=== PATIENT | female | born 1965 | race Caucasian/White ===

== ENCOUNTER 2021-11-07 19:08 | Inpatient (IN) | payer OTHER ==
[~2021-11-07] VITALS: Ht 155 cm; Wt 76.6 kg
--- OUTSIDE RECORDS SUMMARY | 2021-11-07 19:14 | XMS REPORT | Clinical Summary ---
Author Author [facility] Organization [facility] Address Unknown Phone Unavailable Care Team Providers Care Beater And Pulper Feeder Name Role Phone Apolinar Diaz MD PCP Apolinar Bryan MD Unavailable Source Comments Some departments are not documenting in the electronic medical record. If you d o not see the information that you expected, contact Release of Information in [facility] Information Management department at [phone] for further assistan ce in locating additional records.[facility] Allergies Comments Active Allergy Reactions Severity Noted Date Allergy recorded in SMS: LEXAPRO~Reactions: UNSURE Escitalopram Medium 04/26/2006 Allergy recorded in SMS: PNC~Reactions: UNSURE Penicillins Medium 12/07/2004 Medications End Date Status Medication Sig Dispensed Refills Start Date Active EFFEXOR 75 mg tablet Take 75 mg by 0 mouth Daily. Active Problems Not on file Surgical History Surgery Date Site/Laterality Comments HX SECTION HX SINUS SURGERY Medical History Medical History Date Comments Depression Aneurysm (HCC) Unspecified disorders of nervous system Unspecified mental or behavioral problem Social History Date Tobacco Use Types Packs/Day Years Used Current Every Day Smoker 0.5 Comments Alcohol Use Standard Drinks/Week social Yes 0 (1 standard drink = 0.6 o z pure alcohol) Alcohol Habits Answer Date Recorded How often do you have a drink containing alcohol? No t asked How many drinks containing alcohol do you have on No t asked a typical day when you are drinking? How often do you have six or more drinks on one Not asked occasion? Comment: social 04/25/2008 Sex Assigned at Date Recorded Not on file Last Filed Vital Signs Reading Time Taken Comments Vital Sign 101/74 04/25/2008 3:30 PM CDT Blood Pressure 75 04/25/2008 3:30 PM CDT Pulse 36.7 C (98.1 F) 04/25/2008 10:31 AM CDT Temperature - - Respiratory Rate 100% 04/25/2008 3:30 PM CDT Oxygen Saturation - - Inhaled Oxygen Concentration 75.8 kg (167 lb) 04/25/2008 10:31 AM CDT Weight 154.9 cm (5' 1") 04/25/2008 10:31 AM CDT Height 31.55 04/25/2008 10:31 AM CDT Body Mass Index Plan of Treatment Health Maintenance Due Date Last Done Comments HIV SCREENING 1981 DTAP/TDAP VACCINES (1 - 1984 Tdap) HEPATITIS C SCREENING 1984 PHYSICAL (COMPREHENSIVE) 1984 EXAM CERVICAL CANCER SCREENING 1987 BREAST CANCER SCREENING 2006 COLORECTAL CANCER 2016 SCREENING SHINGLES RECOMBINANT 2016 VACCINE (1 of 2) INFLUENZA VACCINE 06/03/2021 Results Not on filefrom Last 3 Months Care Teams Start Date End Date Beater And Pulper Feeder Relationship Specialty 07/08/07 Apolinar Diaz MD PCP - General [facility] [place] [address] 09/03/10 Apolinar Bryan MD [address] [place] [address]
[2021-11-07 20:18] LABS: EOSINOPHILS % (AUTO) 1 % (0-10); HEMATOCRIT 37 % (35-52); HEMOGLOBIN 13.2 g/dL (11.5-16.0); LYMPHOCYTES % (AUTO) 32 % (12-44); MEAN CORPUSCULAR HEMOGLOBIN 30 pg (25-34); MEAN CORPUSCULAR HGB CONC 36 g/dL (32-36); MEAN CORPUSCULAR VOLUME 83 fL (80-99); MEAN PLATELET VOLUME 8.9 fL (9.0-12.2); MONOCYTES % (AUTO) 10 % (0-12); NEUTROPHILS % (AUTO) 56 % (42-75); PLATELET COUNT 478 10^3/uL (130-400); WHITE BLOOD COUNT 8.2 10^3/uL (4.3-11.0)
[2021-11-07 20:19] LABS: BASOPHILS % (AUTO) 0 % (0-10); EOSINOPHILS # (AUTO) 0.1 10^3/uL (0.0-0.3); LYMPHOCYTES # (AUTO) 2.7 X 10^3 (1.0-4.0); MONOCYTES # (AUTO) 0.9 X 10^3 (0.0-1.0); NEUTROPHILS # (AUTO) 4.6 X 10^3 (1.8-7.8)
[2021-11-07 20:35] LABS: BILIRUBIN,URINE NEGATIVE (NEGATIVE); CLARITY,URINE CLEAR; COLOR,URINE YELLOW; GLUCOSE, URINE (UA) NEGATIVE (NEGATIVE); KETONES,URINE NEGATIVE (NEGATIVE); LEUKOCYTE ESTERASE ,URINE NEGATIVE (NEGATIVE); NITRITE,URINE NEGATIVE (NEGATIVE); PH,URINE 6.5 (5-9); PROTEIN,URINE NEGATIVE (NEGATIVE)
[2021-11-07 20:38] LABS: ALBUMIN 4.4 GM/DL (3.2-4.5); BILIRUBIN,TOTAL 0.3 MG/DL (0.1-1.0); CALCIUM 9.5 MG/DL (8.5-10.1); CREATININE SERUM 0.89 MG/DL (0.60-1.30); POTASSIUM 3.9 MMOL/L (3.6-5.0)
[2021-11-07 20:43] LABS: BACTERIA,URINE NEGATIVE /HPF; WBC,URINE 0-2 /HPF
--- NOTE | 2021-11-07 21:52 | ED General ---
General Chief Complaint: General Problems/Pain Stated Complaint: WEAKNESS,LIGHTHEADED Nursing Triage Note: pt arrives per POV w/ c/o general weakness and fatigue. Dx w/ Covid in October, and now back to work fulltime. Source of Information: Patient Exam Limitations: No Limitations History of Present Illness Date Seen by Provider: Nov 07, 2021 Time Seen by Provider: 19:20 Initial Comments Patient is a 56-year-old female who is 15 days post Covid who presents with generalized weakness, fatigue and feeling of bilateral leg heaviness for the past 3 days. Patient denies chest pain palpitations, shortness of breath. No fever chills or sweats. No nausea vomiting or diarrhea. Denies increased leg swelling or pain. No other acute symptoms or complaints. Timing/Duration: 3-4 Days Severity: Mild Modifying Factors: improves with Other Associated Systoms: Other Allergies and Home Medications Allergies Coded Allergies: Penicillins (Verified Allergy, Unknown, Rash, 11/07/21) "when I was little, think a rash" Patient Home Medication List Home Medication List Reviewed: Yes Hydrochlorothiazide (Hydrochlorothiazide) 25 Mg Tablet, 25 MG PO DAILY, (Reported) Entered as Reported by: MARCIN VILLASEÑOR on 11/08/2111 Last Action: Reviewed Olmesartan Medoxomil (Olmesartan Medoxomil) 40 Mg Tablet, 40 MG PO DAILY, (Reported) Entered as Reported by: MARCIN VILLASEÑOR on 11/08/2111 Last Action: Reviewed Review of Systems Review of Systems Constitutional: see HPI EENTM: see HPI Respiratory: see HPI Cardiovascular: see HPI Gastrointestinal: see HPI Genitourinary: see HPI Musculoskeletal: see HPI Skin: see HPI Psychiatric/Neurological: See HPI Hematologic/Lymphatic: See HPI Immunological/Allergic: see HPI All Other Systems Reviewed Negative Unless Noted: Yes Past Wzrhahb-Demzgi-Ckvspo Hx Patient Social History Tobacco Use?: Yes Smoking Status: Current Everyday Smoker Alcohol Use?: Yes Alcohol Frequency: Rarely Immunizations Up To Date Influenza Vaccine Up-to-Date: Yes; Up-to-Date First/Initial COVID19 Vaccinat: Unvaccinated Physical Exam Vital Signs Vital Signs - First Documented 11/07/21 20:03 Temp 36.4 Pulse 78 Resp 20 B/P (MAP) 140/76 (97) Pulse Ox 97 Capillary Refill : Less Than 3 Seconds Height, Weight, BMI Height: '" Weight: lbs. oz. kg; 31.00 BMI Method: General Appearance: Anxious Eyes: Bilateral Eye Normal Inspection, Bilateral Eye PERRL, Bilateral Eye EOMI HEENT: PERRL/EOMI, Normal ENT Inspection, Pharynx Normal Neck: Full Range of Motion, Normal Inspection, Non Tender, Supple Respiratory: Lungs Clear Cardiovascular: Regular Rate, Rhythm, No Edema Gastrointestinal: Non Tender, Soft Extremity: Normal Capillary Refill, Normal Inspection Neurologic/Psychiatric: Alert, Oriented x3 Skin: Normal Color, Warm/Dry Lymphatic: No Adenopathy Focused Exam Sepsis Stage: Ruled Out Progress/Results/Core Measures Suspected Sepsis SIRS Temperature: Pulse: 78 Respiratory Rate: 20 Laboratory Tests 11/07/21 19:50: White Blood Count 8.2 Blood Pressure 140 /76 Mean: 97 Laboratory Tests 11/07/21 19:50: Creatinine 0.89, Platelet Count 478H, Total Bilirubin 0.3 Results/Orders Lab Results Laboratory Tests Test 11/07/21 19:50 11/07/21 20:15 11/07/21 20:20 Range/Units White Blood Count 8.2 4.3-11.0 10^3/uL Red Blood Count 4.38 3.80-5.11 10^6/uL Hemoglobin 13.2 11.5-16.0 g/dL Hematocrit 37 35-52 % Mean Corpuscular Volume 83 80-99 fL Mean Corpuscular Hemoglobin 30 25-34 pg Mean Corpuscular Hemoglobin Concent 36 32-36 g/dL Red Cell Distribution Width 11.8 10.0-14.5 % Platelet Count 478 H 130-400 10^3/uL Mean Platelet Volume 8.9 L 9.0-12.2 fL Neutrophils (%) (Auto) 56 42-75 % Lymphocytes (%) (Auto) 32 12-44 % Monocytes (%) (Auto) 10 0-12 % Eosinophils (%) (Auto) 1 0-10 % Basophils (%) (Auto) 0 0-10 % Neutrophils # (Auto) 4.6 1.8-7.8 X 10^3 Lymphocytes # (Auto) 2.7 1.0-4.0 X 10^3 Monocytes # (Auto) 0.9 0.0-1.0 X 10^3 Eosinophils # (Auto) 0.1 0.0-0.3 10^3/uL Basophils # (Auto) 0.0 0.0-0.1 10^3/uL Sodium Level 121 *L 135-145 MMOL/L Potassium Level 3.9 3.6-5.0 MMOL/L Chloride Level 86 L 98-107 MMOL/L Carbon Dioxide Level 24 21-32 MMOL/L Anion Gap 11 5-14 MMOL/L Blood Urea Nitrogen 11 7-18 MG/DL Creatinine 0.89 0.60-1.30 MG/DL Estimat Glomerular Filtration Rate 66 BUN/Creatinine Ratio 12 Glucose Level 132 H 70-105 MG/DL Calcium Level 9.5 8.5-10.1 MG/DL Corrected Calcium 9.2 8.5-10.1 MG/DL Magnesium Level 1.8 1.6-2.4 MG/DL Total Bilirubin 0.3 0.1-1.0 MG/DL Aspartate Amino Transf (AST/SGOT) 27 5-34 U/L Alanine Aminotransferase (ALT/SGPT) 28 0-55 U/L Alkaline Phosphatase 115 40-136 U/L Total Protein 7.0 6.4-8.2 GM/DL Albumin 4.4 3.2-4.5 GM/DL Influenza Type A Antigen NEGATIVE NEGATIVE Influenza Type B Antigen NEGATIVE NEGATIVE Urine Color YELLOW Urine Clarity CLEAR Urine pH 6.5 5-9 Urine Specific [place] 1.010 L 1.016-1.022 Urine Protein NEGATIVE NEGATIVE Urine Glucose (UA) NEGATIVE NEGATIVE Urine Ketones NEGATIVE NEGATIVE Urine Nitrite NEGATIVE NEGATIVE Urine Bilirubin NEGATIVE NEGATIVE Urine Urobilinogen 0.2 < = 1.0 MG/DL Urine Leukocyte Esterase NEGATIVE NEGATIVE Urine RBC (Auto) NEGATIVE NEGATIVE Urine RBC NONE /HPF Urine WBC 0-2 /HPF Urine Squamous Epithelial Cells 2-5 /HPF Urine Crystals NONE /LPF Urine Bacteria NEGATIVE /HPF Urine Casts NONE /LPF Urine Mucus SMALL H /LPF Urine Culture Indicated NO My Orders Orders - DORIS PALAFOX DO Cbc With Automated Diff (11/07/21 20:02) Comprehensive Metabolic Panel (11/07/21 20:02) Urinalysis (11/07/21 20:02) Influenza A & B Antigens (11/07/21 20:02) Magnesium (11/07/21 20:11) Vital Signs/I&O 11/07/21 11/07/21 20:03 23:39 Temp 36.4 Pulse 78 72 Resp 20 20 B/P (MAP) 140/76 (97) 99/50 Pulse Ox 97 97 Capillary Refill : Less Than 3 Seconds Blood Pressure Mean: 97 Departure Communication (PCP) Patient with symptomatic hyponatremia likely secondary to antihypertensive and diuretics. IV fluids given. Will admit to the hospitalist service Impression Primary Impression: Generalized weakness Additional Impression: Hyponatremia Disposition: ADMITTED INPATIENT Condition: Stable Admissions Decision to Admit Reason: Admit from ER (General) Decision to Admit/Date: Nov 08, 2021 Time/Decision to Admit Time: 23:00 Departure-Patient Inst. Referrals: KEVIN HUMPHREYS MD (PCP/Family) Primary Care Physician DORIS PALAFOX DO Nov 07, 2021 21:52
[2021-11-08] MEDS ORDERED: HYDR25TA4 PO (00:12)
[2021-11-08] MEDS ORDERED: OLME40TA18 PO (00:12)
[2021-11-08 00:30] VITALS: BP 116/66
[2021-11-08] MEDS ORDERED: ACETAMINOPHEN 325 MG TABLET PO PRN (00:45)
[2021-11-08] MEDS ORDERED: ONDANSETRON 4 MG/2 ML (SDV) Z0FRAN IV PRN (00:45)
[2021-11-08] MEDS: NS IV 1000 ML 1,000 ML IV SCH ×2 (01:01→17:32)
[2021-11-08 04:25] VITALS: BP 100/55
[2021-11-08] MEDS ORDERED: HYDROcodone/APAP 5 MG/325 MG (LORTAB) TAB PO PRN (06:15)
[2021-11-08] MEDS ORDERED: DOCUSATE SODIUM 100 MG (COLACE) CAP PO PRN (06:15)
[2021-11-08] MEDS ORDERED: diphenhydrAMINE 25 MG TAB (BENADRYL) PO PRN (06:15)
[2021-11-08] MEDS ORDERED: LOPERAMIDE 2 MG (IMODIUM) TABLET PO PRN (06:15)
[2021-11-08] MEDS ORDERED: CALCIUM CARBONATE 500 MG (TUMS) TAB.CHEW PO PRN (06:15)
[2021-11-08] MEDS ORDERED: MELATONIN 3 MG TABLET PO PRN (06:15)
[2021-11-08] MEDS ORDERED: ALPRAZolam 0.25 MG (XANAX) TAB PO PRN (06:15)
[2021-11-08 06:59] LABS: BASOPHILS % (AUTO) 0 % (0-10); EOSINOPHILS # (AUTO) 0.1 10^3/uL (0.0-0.3); EOSINOPHILS % (AUTO) 1 % (0-10); HEMATOCRIT 36 % (35-52); HEMOGLOBIN 12.8 g/dL (11.5-16.0); LYMPHOCYTES # (AUTO) 1.9 10^3/uL (1.0-4.0); LYMPHOCYTES % (AUTO) 25 % (12-44); MEAN CORPUSCULAR HEMOGLOBIN 30 pg (25-34); MEAN CORPUSCULAR HGB CONC 36 g/dL (32-36); MEAN CORPUSCULAR VOLUME 84 fL (80-99); MEAN PLATELET VOLUME 9.2 fL (9.0-12.2); MONOCYTES # (AUTO) 0.7 10^3/uL (0.0-1.0); MONOCYTES % (AUTO) 10 % (0-12); NEUTROPHILS # (AUTO) 4.8 10^3/uL (1.8-7.8); NEUTROPHILS % (AUTO) 64 % (42-75); PLATELET COUNT 388 10^3/uL (130-400); WHITE BLOOD COUNT 7.5 10^3/uL (4.3-11.0)
[2021-11-08 07:21] LABS: POTASSIUM 3.9 MMOL/L (3.6-5.0)
[2021-11-08 07:22] LABS: CALCIUM 9.2 MG/DL (8.5-10.1)
[2021-11-08 07:26] LABS: CREATININE SERUM 0.79 MG/DL (0.60-1.30)
[2021-11-08 07:42] VITALS: BP 117/57
[2021-11-08] MEDS: SENNA W/DOCUSATE (SENOKOT S) TABLET PO SCH ×2 (08:52→22:45)
[2021-11-08] MEDS: ENOXAPARIN 40 MG/0.4 ML (LOVENOX) SYR SC SCH (08:52)
[2021-11-08] MEDS: polyethylene glycoL POWDER 17 GM (MIRALAX) PACK PO SCH ×2 (08:52→22:44)
[2021-11-08 11:29] VITALS: BP 114/54
[2021-11-08] MEDS ORDERED: ASPI-789 PO (11:30)
[2021-11-08] MEDS ORDERED: ASCO-262 PO (11:30)
[2021-11-08] MEDS ORDERED: ZINC50TA58 PO (11:30)
[2021-11-08] MEDS ORDERED: OMEP-254 PO (11:30)
--- NOTE | 2021-11-08 13:55 | History & Physical ---
ADE WILKINSON 11/08/21 0295: History of Present Illness History of Present Illness Reason for visit/HPI This is a 56 y/o female with a hx of HTN who presents for symptomatic hyponatremia. Pt reports that she was diagnosed with COVID and a UTI on 10/22/21 and, after her recovery, recently began to feel somewhat weak. She decided to seek care after feeling that her legs were particularly heavy and unsteady, and she felt shaky and unwell. She has never felt this way before. In the ED, she was found to have a serum sodium of 121, leading to her admission. Date of Admission Nov 08, 2021 at 00:03 Date Seen by a Provider: Nov 08, 2021 Time Seen by a Provider: 08:45 I consulted on this patient on 11/08/21 13:46 Attending Physician Molly Redd DO Admitting Physician Apolinar Diaz MD Consult Allergies and Home Medications Allergies Coded Allergies: Penicillins (Verified Allergy, Unknown, Rash, 11/07/21) "when I was little, think a rash" Patient Home Medication List Home Medication List Reviewed: Yes Ascorbate Calcium (Vitamin C) 500 Mg Tablet, 500 MG PO DAILY, (Reported) Entered as Reported by: RUBIA RO on 11/08/211129 Last Action: Converted Aspirin/Acetaminophen/Caffeine (Excedrin Migraine Caplet) 1 Each Tablet, 2 EACH PO Q6-8HR PRN for Headache, (Reported) Entered as Reported by: RUBIA RO on 11/08/211129 Last Action: Converted Hydrochlorothiazide (Hydrochlorothiazide) 25 Mg Tablet, 25 MG PO HS, (Reported) Entered as Reported by: MARCIN VILLASEÑOR on 11/08/2111 Last Action: Held Olmesartan Medoxomil (Olmesartan Medoxomil) 40 Mg Tablet, 40 MG PO HS, (Reported) Entered as Reported by: MARCIN VILLASEÑOR on 11/08/2111 Last Action: Converted Omeprazole Magnesium (Omeprazole Magnesium) 20 Mg Capsule.dr, 20 MG PO DAILY PRN for HEARTBURN, (Reported) Entered as Reported by: RUBIA RO on 11/08/211129 Last Action: Converted Zinc (Zinc) 50 Mg Tablet, 50 MG PO DAILY, (Reported) Entered as Reported by: RUBIA RO on 1/6/22 1130 Last Action: Converted Past [id number]-Dgnbzi-Uttgmx Hx Patient Social History Marrital Status: Employed/Student: employed Tobacco Use?: Yes Tobacco type used: Cigarettes Smoking Status: Current Everyday Smoker (1/2 PPD for 20 years) Smokeless Tobacco Frequency: Never a User Use of E-Cig and/or Vaping dev: No Substance use?: No Alcohol Use?: Yes Alcohol Frequency: Rarely Pt feels they are or have been: No Immunizations Up To Date First/Initial COVID19 Vaccinat: Unvaccinated Tetanus Booster (TDap): Unknown Current Status status: No Advance Directives: No Communicates: Verbally Primary Language: Dominican Preferred Spoken Language: Dominican Is interpretation needed?: No Sensory deficits: Vision impairment Past Medical History Surgeries: Section, Hysterectomy, Oophorectomy, Tonsillectomy, Vascular Surgery (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 years ago) Hypertension VESSEL MASTER History: Hysterectomy Family Medical History Cancer (Brother: Brain Mother: Lung ), Hypertension (Father) Review of Systems Constitutional: No chills, No fever; weakness EENTM: No hearing loss, No double vision, No vision loss, No throat pain Respiratory: No cough, No short of breath, No wheezing Cardiovascular: No chest pain, No edema Gastrointestinal: No abdominal pain, No constipation, No diarrhea, No loss of appetite, No nausea, No vomiting Genitourinary: No dysuria, No frequency : No Musculoskeletal: No joint swelling, No muscle pain, No muscle stiffness Skin: No change in color, No change in hair/nails, No pruritus, No rash Psychiatric/Neurological: Denies Headache, Denies Numbness; Weakness Physical Exam Vital Signs Vital Signs - First Documented 11/07/21 11/08/21 20:03 00:30 Temp 36.4 Pulse 78 Resp 20 B/P (MAP) 140/76 (97) Pulse Ox 97 O2 Delivery Room Air Capillary Refill : Less Than 3 Seconds Height, Weight, BMI Height: '" Weight: lbs. oz. kg; 31.88 BMI Method: General Appearance: No Apparent Distress, WD/WN Eyes: Bilateral Eye Normal Inspection, Bilateral Eye PERRL, Bilateral Eye EOMI HEENT: PERRL/EOMI, TMs Normal, Moist Mucous Membranes Neck: Non Tender; No JVD Respiratory: Chest Non Tender, Lungs Clear, No Accessory Muscle Use, No Respiratory Distress Cardiovascular: Regular Rate, Rhythm, No Edema, No Gallop, No JVD, No Murmur Gastrointestinal: Non Tender, Soft Rectal: Deferred Extremity: Normal Capillary Refill, Non Tender, No Calf Tenderness Neurologic/Psychiatric: Alert, Oriented x3, Normal Mood/Affect Skin: Normal Color, Warm/Dry Lymphatic: No Adenopathy Assessment/Plan Assessment and Plan This is a 56 y/o female with a hx of HTN who presented for symptomatic hy ponatremia that appears to be resolving. Problems: (1) Hyponatremia Onset Date: ~ 11/07/2021 Status: Acute Assessment & Plan: - likely 12/05 thazide diuretic use - good goal rate of correction of 6-7/day - Na 127 today - replete K PRN - Fluid restrictions to 1.5 liter per 24h - if not correcting, then will start intermittent IVF D5W Admission Diagnosis Admission Status: Inpatient Order (span 2 midnights) Reason for Inpatient Admission: Hyponatremia MOLLY REDD DO 11/09/21 0553: History of Present Illness History of Present Illness Reason for visit/HPI Chief Complaint: Hyponatremia with weakness HPI: This is a 56yoWF clinic patient of Dr. Diaz who just recently recovered from COVID on 10/22/21. Patient presented with weakness and shakiness found to have sodium level of 121. We are reviewing her home medications, but Thiazide diuretic is on her home medication list. She has been placed on fluid restriction and gentle IV fluids and her Sodium level is 127 today. She feels much better. Allergies and Home Medications Allergies Coded Allergies: Penicillins (Verified Allergy, Unknown, Rash, 11/07/21) "when I was little, think a rash" Patient Home Medication List Home Medication List Reviewed: Yes Ascorbate Calcium (Vitamin C) 500 Mg Tablet, 500 MG PO DAILY, (Reported) Entered as Reported by: RUBIA RO on 11/08/21 1130 Last Action: Converted Aspirin/Acetaminophen/Caffeine (Excedrin Migraine Caplet) 1 Each Tablet, 2 EACH PO Q6-8HR PRN for Headache, (Reported) Entered as Reported by: RUBIA RO on 11/08/21 1130 Last Action: Converted Hydrochlorothiazide (Hydrochlorothiazide) 25 Mg Tablet, 25 MG PO HS, (Reported) Entered as Reported by: MARCIN VILLASEÑOR on 11/08/2111 Last Action: Held Olmesartan Medoxomil (Olmesartan Medoxomil) 40 Mg Tablet, 40 MG PO HS, (Reported) Entered as Reported by: MARCIN VILLASEÑOR on 11/08/2111 Last Action: Converted Omeprazole Magnesium (Omeprazole Magnesium) 20 Mg Capsule.dr, 20 MG PO DAILY PRN for HEARTBURN, (Reported) Entered as Reported by: RUBIA RO on 11/08/211129 Last Action: Converted Zinc (Zinc) 50 Mg Tablet, 50 MG PO DAILY, (Reported) Entered as Reported by: RUBIA RO on 11/08/211129 Last Action: Converted Past Jfikdnw-Bqvnwe-[id number] Hx Patient Social History Marrital Status: Employed/Student: employed Tobacco Use?: Yes Smoking Status: Current Everyday Smoker (1/2 PPD for 20 years) Past Medical History Surgeries: Section, Hysterectomy, Oophorectomy, Tonsillectomy, Vascular Surgery (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 years ago) Hypertension VESSEL MASTER History: Hysterectomy Review of Systems Constitutional: see HPI, weakness EENTM: no symptoms reported Respiratory: no symptoms reported Cardiovascular: no symptoms reported Gastrointestinal: no symptoms reported Genitourinary: no symptoms reported Skin: no symptoms reported Psychiatric/Neurological: No Symptoms Reported All Other Systems Reviewed Negative Unless Noted: Yes Physical Exam General Appearance: No Apparent Distress, WD/WN, Chronically ill Eyes: Bilateral Eye Normal Inspection, Bilateral Eye PERRL, Bilateral Eye EOMI HEENT: PERRL/EOMI, Normal ENT Inspection, Pharynx Normal Neck: Full Range of Motion, Normal Inspection, Non Tender, Supple, Carotid Bruit Respiratory: Chest Non Tender, Lungs Clear, Normal Breath Sounds, No Accessory Muscle Use, No Respiratory Distress Cardiovascular: Regular Rate, Rhythm, No Edema, No Gallop, No JVD, No Murmur, Normal Peripheral Pulses Gastrointestinal: Normal Bowel Sounds, No Organomegaly, No Pulsatile Mass, Non Tender, Soft Back: Normal Inspection, No CVA Tenderness, No Vertebral Tenderness Extremity: Normal Capillary Refill, Normal Inspection, Normal Range of Motion, Non Tender, No Calf Tenderness, No Pedal Edema Neurologic/Psychiatric: Alert, Oriented x3, No Motor/Sensory Deficits, Normal Mood/Affect Skin: Normal Color, Warm/Dry Lymphatic: No Adenopathy Assessment/Plan Assessment and Plan Assessment: Severe hyponatremia Post COVID syndrome Smoker HTN Plan: IVF gentle Fluid restriction DC HCTZ Smoking cessation Admission Diagnosis Admission Status: Inpatient Order (span 2 midnights) Reason for Inpatient Admission: severe hyponatremia Supervisory-Addendum Brief Verification & Attestation Participated in pt care: history, MDM, physical Personally performed: exam, history, MDM, supervision of care Care discussed with: Medical Student Procedures: n/a Results interpretation: Verified all documentation Verification and Attestation of Medical Student E/M Service A medical student performed and documented this service in my presence. I reviewed and verified all information documented by the medical student and made modifications to such information, when appropriate. I personally performed the physical exam and medical decision making. Molly Redd, Nov 09, 2021,05:51 ADE WILKINSON Nov 08, 2021 13:55 MOLLY REDD DO Nov 09, 2021 05:53
[2021-11-08 15:35] VITALS: BP 108/53
[2021-11-08 20:40] VITALS: BP 117/56
[2021-11-08] MEDS ORDERED: NON-FORMULARY MEDICATION 1 EA EA (Aspirin/Acetaminophen/Caffeine (Excedrin Migraine Caplet PO PRN (21:00)
[2021-11-08] MEDS ORDERED: VALSARTAN 160 MG (DIOVAN) TABLET PO SCH (22:00)
[2021-11-08] MEDS ORDERED: PANTOPRAZOLE 20 MG TABLET (PROTONIX) PO PRN (22:15)
[2021-11-09 00:10] VITALS: BP 89/51
[2021-11-09 04:05] VITALS: BP 111/56
[2021-11-09] MEDS: NS IV 1000 ML 1,000 ML IV SCH (04:13)
[2021-11-09 06:15] LABS: BASOPHILS % (AUTO) 1 % (0-10); EOSINOPHILS # (AUTO) 0.1 10^3/uL (0.0-0.3); EOSINOPHILS % (AUTO) 1 % (0-10); HEMATOCRIT 35 % (35-52); HEMOGLOBIN 12.2 g/dL (11.5-16.0); LYMPHOCYTES # (AUTO) 2.2 10^3/uL (1.0-4.0); LYMPHOCYTES % (AUTO) 41 % (12-44); MEAN CORPUSCULAR HEMOGLOBIN 30 pg (25-34); MEAN CORPUSCULAR HGB CONC 35 g/dL (32-36); MEAN CORPUSCULAR VOLUME 87 fL (80-99); MEAN PLATELET VOLUME 9.2 fL (9.0-12.2); MONOCYTES # (AUTO) 0.7 10^3/uL (0.0-1.0); MONOCYTES % (AUTO) 14 % (0-12); NEUTROPHILS # (AUTO) 2.4 10^3/uL (1.8-7.8); NEUTROPHILS % (AUTO) 44 % (42-75); PLATELET COUNT 354 10^3/uL (130-400); WHITE BLOOD COUNT 5.5 10^3/uL (4.3-11.0)
[2021-11-09 06:29] LABS: ALBUMIN 3.4 GM/DL (3.2-4.5); POTASSIUM 4.3 MMOL/L (3.6-5.0)
[2021-11-09 06:30] LABS: CALCIUM 8.7 MG/DL (8.5-10.1)
[2021-11-09 06:32] LABS: TOTAL PROTEIN 5.6 GM/DL (6.4-8.2)
[2021-11-09 06:33] LABS: BILIRUBIN,TOTAL 0.4 MG/DL (0.1-1.0)
[2021-11-09 06:35] LABS: CREATININE SERUM 0.77 MG/DL (0.60-1.30)
[2021-11-09 07:41] VITALS: BP 109/55
[2021-11-09] MEDS ORDERED: ZINC SULFATE 220 MG CAPSULE PO SCH (08:00)
[2021-11-09] MEDS: SENNA W/DOCUSATE (SENOKOT S) TABLET PO SCH (08:53)
[2021-11-09] MEDS: polyethylene glycoL POWDER 17 GM (MIRALAX) PACK PO SCH (08:53)
[2021-11-09] MEDS: ENOXAPARIN 40 MG/0.4 ML (LOVENOX) SYR SC SCH (08:53)
[2021-11-09] MEDS ORDERED: ASCORBIC ACID (VIT C) 500 MG TABLET PO SCH (09:00)
[2021-11-09] MEDS ORDERED: FURO-125 PO (10:54)
--- NOTE | 2021-11-09 10:55 | Discharge Summary ---
Diagnosis/Chief Complaint Date of Admission Nov 08, 2021 at 00:03 Date of Discharge Discharge Date: Nov 09, 2021 Discharge Diagnosis Hyponatremia Reason Hospital Visit Chief Complaint: Hyponatremia with weakness HPI: This is a 56yoWF clinic patient of Dr. Diaz who just recently recovered from COVID on 10/22/21. Patient presented with weakness and shakiness found to have sodium level of 121. We are reviewing her home medications, but Thiazide diuretic is on her home medication list. She has been placed on fluid restri ction and gentle IV fluids and her Sodium level is 127 today. She feels much better. Discharge Summary Discharge Physical Examination Allergies: Coded Allergies: Penicillins (Verified Allergy, Unknown, Rash, 11/07/21) "when I was little, think a rash" Vitals & I&Os Vital Signs Date Time Temp Pulse Resp B/P (MAP) Pulse Ox O2 Delivery O2 Flow Rate FiO2 11/09/21 13:49 36.2 59 20 109/55 94 Room Air General Appearance: Alert, Oriented X3, Cooperative Respiratory: Clear to Auscultation Cardiovascular: Regular Rate Hospital Course Was the Problem List Reviewed?: Yes Pt had an uneventful brief course after she was admitted for sodium level 121 with severe weakness and status post-COVID recovery Smoking cessation was counseled Hydrochlorothiazide was discontinued Lasix given 20mg IV x1 prior to discharge Fluid was hep-locked She will take Lasix as needed for Edema at home since Hydrochlorothiazide was discontinued She will follow-up with Dr. Diaz in 1 week Labs (last 24 hrs) Laboratory Tests 11/07/21 19:50: White Blood Count 8.2, Red Blood Count 4.38, Hemoglobin 13.2, Hematocrit 37, Mean Corpuscular Volume 83, Mean Corpuscular Hemoglobin 30, Mean Corpuscular Hemoglobin Concent 36, Red Cell Distribution Width 11.8, Platelet Count 478H, Mean Platelet Volume 8.9L, Neutrophils (%) (Auto) 56, Lymphocytes (%) (Auto) 32, Monocytes (%) (Auto) 10, Eosinophils (%) (Auto) 1, Basophils (%) (Auto) 0, Neut rophils # (Auto) 4.6, Lymphocytes # (Auto) 2.7, Monocytes # (Auto) 0.9, Eosinophils # (Auto) 0.1, Basophils # (Auto) 0.0, Sodium Level 121*L, Potassium Level 3.9, Chloride Level 86L, Carbon Dioxide Level 24, Anion Gap 11, Blood Urea Nitrogen 11, Creatinine 0.89, Estimat Glomerular Filtration Rate 66, BUN/Creatinine Ratio 12, Glucose Level 132H, Calcium Level 9.5, Corrected Calcium 9.2, Magnesium Level 1.8, Total Bilirubin 0.3, Aspartate Amino Transf (AST/SGOT) 27, Alanine Aminotransferase (ALT/SGPT) 28, Alkaline Phosphatase 115, Total Protein 7.0, Albumin 4.4 11/07/21 20:15: Influenza Type A Antigen NEGATIVE, Influenza Type B Antigen NEGATIVE 11/07/21 20:20: Urine Color YELLOW, Urine Clarity CLEAR, Urine pH 6.5, Urine Specific [place] 1.010L, Urine Protein NEGATIVE, Urine Glucose (UA) NEGATIVE, Urine Ketones NEGATIVE, Urine Nitrite NEGATIVE, Urine Bilirubin NEGATIVE, Urine Urobilinogen 0 .2, Urine Leukocyte Esterase NEGATIVE, Urine RBC (Auto) NEGATIVE, Urine RBC NONE, Urine WBC 0-2, Urine Squamous Epithelial Cells 2-5, Urine Crystals NONE, Urine Bacteria NEGATIVE, Urine Casts NONE, Urine Mucus SMALLH, Urine Culture Ind icated NO 11/08/21 06:32: White Blood Count 7.5, Red Blood Count 4.26, Hemoglobin 12.8, Hematocrit 36, Mean Corpuscular Volume 84, Mean Corpuscular Hemoglobin 30, Mean Corpuscular Hemoglobin Concent 36, Red Cell Distribution Width 11.6, Platelet Count 388, Mean Platelet Volume 9.2, Neutrophils (%) (Auto) 64, Lymphocytes (%) (Auto) 25, Monocytes (%) (Auto) 10, Eosinophils (%) (Auto) 1, Basophils (%) (Auto) 0, Neutrophils # (Auto) 4.8, Lymphocytes # (Auto) 1.9, Monocytes # (Auto) 0.7, Eosi nophils # (Auto) 0.1, Basophils # (Auto) 0.0, Sodium Level 127L, Potassium Level 3.9, Chloride Level 96L, Carbon Dioxide Level 23, Anion Gap 8, Blood Urea Nitrogen 8, Creatinine 0.79, Estimat Glomerular Filtration Rate 76, BUN/Creatinine Ratio 10, Glucose Level 104, Calcium Level 9.2, Immature Granulocyte % (Auto) 0, Immature Granulocyte # (Auto) 0.0 11/09/21 05:34: White Blood Count 5.5, Red Blood Count 4.01, Hemoglobin 12.2, Hematocrit 35, Mean Corpuscular Volume 87, Mean Corpuscular Hemoglobin 30, Mean Corpuscular Hemoglobin Concent 35, Red Cell Distribution Width 11.9, Platelet Count 354, Mean Platelet Volume 9.2, Immature Granulocyte % (Auto) 0, Neutrophils (%) (Auto) 44, Lymphocytes (%) (Auto) 41, Monocytes (%) (Auto) 14H, Eosinophils (%) (Auto) 1, Basophils (%) (Auto) 1, Neutrophils # (Auto) 2.4, Lymphocytes # (Auto) 2.2, Monocytes # (Auto) 0.7, Eosinophils # (Auto) 0.1, Basophils # (Auto) 0.0, Immature Granulocyte # (Auto) 0.0, Sodium Level 135, Potassium Level 4.3, Chloride Level 107, Carbon Dioxide Level 22, Anion Gap 6, Blood Urea Nitrogen 10 , Creatinine 0.77, Estimat Glomerular Filtration Rate 78, BUN/Creatinine Ratio 13, Glucose Level 98, Calcium Level 8.7, Corrected Calcium 9.2, Total Bilirubin 0.4, Aspartate Amino Transf (AST/SGOT) 29, Alanine Aminotransferase (ALT/SGPT) 34, Alkaline Phosphatase 75, Total Protein 5.6L, Albumin 3.4 Pending Labs Laboratory Tests 11/07/21 19:50: White Blood Count 8.2, Red Blood Count 4.38, Hemoglobin 13.2, Hematocrit 37, Mean Corpuscular Volume 83, Mean Corpuscular Hemoglobin 30, Mean Corpuscular Hemoglobin Concent 36, Red Cell Distribution Width 11.8, Platelet Count 478, M vivienne Platelet Volume 8.9, Neutrophils (%) (Auto) 56, Lymphocytes (%) (Auto) 32, Monocytes (%) (Auto) 10, Eosinophils (%) (Auto) 1, Basophils (%) (Auto) 0, Neutrophils # (Auto) 4.6, Lymphocytes # (Auto) 2.7, Monocytes # (Auto) 0.9, Eosinophils # (Auto) 0.1, Basophils # (Auto) 0.0, Sodium Level 121, Potassium Level 3.9, Chloride Level 86, Carbon Dioxide Level 24, Anion Gap 11, Blood Urea Nitrogen 11, Creatinine 0.89, Estimat Glomerular Filtration Rate 66, BUN/Creatinine Ratio 12, Glucose Level 132, Calcium Level 9.5, Corrected Calcium 9.2, Magnesium Level 1.8, Total Bilirubin 0.3, Aspartate Amino Transf (AST/SGOT) 27, Alanine Aminotransferase (ALT/SGPT) 28, Alkaline Phosphatase 115, Total Protein 7.0, Albumin 4.4 11/07/21 20:15: Influenza Type A Antigen NEGATIVE, Influenza Type B Antigen NEGATIVE 11/07/21 20:20: Urine Color YELLOW, Urine Clarity CLEAR, Urine pH 6.5, Urine Specific [place] 1.010, Urine Protein NEGATIVE, Urine Glucose (UA) NEGATIVE, Urine Ketones NEGATIVE, Urine Nitrite NEGATIVE, Urine Bilirubin NEGATIVE, Urine Urobilinogen 0.2, Urine Leukocyte Esterase NEGATIVE, Urine RBC (Auto) NEGATIVE, Urine RBC NONE, Urine WBC 0-2, Urine Squamous Epithelial Cells 2-5, Urine Crystals NONE, Urine Bacteria NEGATIVE, Urine Casts NONE, Urine Mucus SMALL, Urine Culture Indicated NO 11/08/21 06:32: White Blood Count 7.5, Red Blood Count 4.26, Hemoglobin 12.8, Hematocrit 36, Mean Corpuscular Volume 84, Mean Corpuscular Hemoglobin 30, Mean Corpuscular Hemoglobin Concent 36, Red Cell Distribution Width 11.6, Platelet Count 388, Mean Platelet Volume 9.2, Neutrophils (%) (Auto) 64, Lymphocytes (%) (Auto) 25, Monocytes (%) (Auto) 10, Eosinophils (%) (Auto) 1, Basophils (%) (Auto) 0, Neutrophils # (Auto) 4.8, Lymphocytes # (Auto) 1.9, Monocytes # (Auto) 0.7, Eosinophils # (Auto) 0.1, Basophils # (Auto) 0.0, Sodium Level 127, Potassium Level 3.9, Chloride Level 96, Carbon Dioxide Level 23, Anion Gap 8, Blood Urea Nitrogen 8, Creatinine 0.79, Estimat Glomerular Filtration Rate 76, BUN/Creatinine Ratio 10, Glucose Level 104, Calcium Level 9.2, Immature Granulocyte % (Auto) 0, Immature Granulocyte # (Auto) 0.0 11/09/21 05:34: White Blood Count 5.5, Red Blood Count 4.01, Hemoglobin 12.2, Hematocrit 35, M vivienne Corpuscular Volume 87, Mean Corpuscular Hemoglobin 30, Mean Corpuscular Hemoglobin Concent 35, Red Cell Distribution Width 11.9, Platelet Count 354, Mean Platelet Volume 9.2, Immature Granulocyte % (Auto) 0, Neutrophils (%) (Auto) 44, Lymphocytes (%) (Auto) 41, Monocytes (%) (Auto) 14, Eosinophils (%) (Auto) 1, Basophils (%) (Auto) 1, Neutrophils # (Auto) 2.4, Lymphocytes # (Auto) 2.2, Monocytes # (Auto) 0.7, Eosinophils # (Auto) 0.1, Basophils # (Auto) 0.0, Immature Granulocyte # (Auto) 0.0, Sodium Level 135, Potassium Level 4.3, Chloride Level 107, Carbon Dioxide Level 22, Anion Gap 6, Blood Urea Nitrogen 10, Creatinine 0.77, Estimat Glomerular Filtration Rate 78, BUN/Creatinine Ratio 13, Glucose Level 98, Calcium Level 8.7, Corrected Calcium 9.2, Total Bilirubin 0.4, Aspartate Amino Transf (AST/SGOT) 29, Alanine Aminotransferase (ALT/SGPT) 34, Alkaline Phosphatase 75, Total Protein 5.6, Albumin 3.4 Discharge Home Medications: Active Scripts Active Lasix (Furosemide) 20 Mg Tablet 20 Mg PO DAILY PRN Reported Excedrin Migraine Caplet (Aspirin/Acetaminophen/Caffeine) 1 Each Tablet 2 Each PO Q6-8HR PRN Zinc 50 Mg Tablet 50 Mg PO DAILY Vitamin C (Ascorbate Calcium) 500 Mg Tablet 500 Mg PO DAILY Omeprazole Magnesium 20 Mg Capsule.dr 20 Mg PO DAILY PRN Olmesartan Medoxomil 40 Mg Tablet 40 Mg PO HS Instructions to patient/family Please see electronic discharge instructions given to patient. DMITRY REDD DO Nov 09, 2021 10:55
[2021-11-09] MEDS ORDERED: FUROSEMIDE 40 MG/4 ML INJ (LASIX) IVP ONE (11:00)
[2021-11-09] MEDS ORDERED: FUROSEMIDE 40 MG/4 ML INJ (LASIX) ONE (11:52)
--- NOTE | 2021-11-09 13:46 | Progress Note ---
ADE WILKINSON 11/09/21 1346: Progress Note Patient Name: Winnie Polanco Admission Date: 11/07/21 Discharge Date: 11/09/21 Attending Physician: Dr. Sotelo Admitting Diagnosis: Hyponatremia Discharge Diagnosis: Same Consultations: none Procedures: none Complications: none Brief Hospital Course: Winnie Polanco, a 56 year old female patient presented to the [facility] ED for complaints of weakness. Notable findings in the ED included a serum sodium of 121. Ultimately, he/she was admitted to 4th floor med/surg for hyponatremia. Continued appropriate evaluation and management on the general medicine floor service and they progressed well there. She was monitored and treated according to the standard of care. Symptoms were managed well with fluid restriction, gentle IV fluids, and discontinuing her hydrochlorothiazide. No evidence of AMS or end organ dysfunction were noted during this admission. No episodes of oxygen desaturations at rest or during exertion requiring more aggressive noninvasive ventilation or invasive ventilation devices were observed. No signs or symptoms of pathological bleeding were noted. She was evaluated for her problems and deemed appropriate for outpatient follow- up. Upon the day of dismissal the patient was in agreement with the plan. The patient was noted by providers, nursing, and/or ancillary staff members to be tolerating the appropriate diet, having bowel movement(s), ambulating, oxygenating, and communicating at their prior baseline upon or prior to dismissal. All questions were answered prior to discharge. They will need to follow up with their PCP in one week. On dismissal the patient was encouraged to return to an emergency department if their symptoms/problems persist and/or worsen. Discharge Plan: Discharge to home Condition at Discharge: Stable Activity: As tolerated Diet: Standard MOLLY SOTELO DO 11/10/21 0804: Supervisory-Addendum Brief Verification & Attestation Participated in pt care: history, MDM, physical Personally performed: exam, history, MDM, supervision of care Care discussed with: Medical Student Procedures: n/a Results interpretation: Verified all documentation Verification and Attestation of Medical Student E/M Service A medical student performed and documented this service in my presence. I reviewed and verified all information documented by the medical student and made modifications to such information, when appropriate. I personally performed the physical exam and medical decision making. Molly Sotelo, Nov 10, 2021,08:04 ADE WILKINSON Nov 09, 2021 13:46 MOLLY SOTELO DO Nov 10, 2021 08:04
[2021-11-09 13:49] VITALS: BP 109/55
== END 2021-11-09 13:52 | disposition home or self-care (01) | DRG 641 ==
LOC: EDUNIT# 19:08 → ER FS 19:10 → 4TH 11-08 00:03
PROVIDERS: ADMIT Internal Medicine; ATTEND Internal Medicine
DX: E87.1 Hypo-osmolality and hyponatremia (principal); I10 Essential (primary) hypertension; U09.9 Post COVID-19 condition, unspecified; R53.1 Weakness; F17.210 Nicotine dependence, cigarettes, uncomplicated; Z79.899 Other long term (current) drug therapy
CPT/HCPCS: 36415; 80048; 80053; 81000; 83735; 85025; 87804; G0378